=== PATIENT | female | born 1970 | race Caucasian/White ===

== ENCOUNTER 2024-08-30 21:43 | Emergency (ER) | payer SELFPAY ==
[~2024-08-30] VITALS: Ht 162.6 cm; Wt 82.0 kg
[2024-08-30 21:45] VITALS: O2SAT 100
[2024-08-30] MEDS: DEXAMETHASONE 10 MG/ML VIAL IV ONE (23:36)
[2024-08-30 23:48] VITALS: BP 127/71; PULSE 81; RESP 18; TEMP 36.1; O2SAT 98
== END 2024-08-30 23:49 | disposition home or self-care (01) ==
LOC: ER 21:43
DX: J02.9 Acute pharyngitis, unspecified (principal); Z95.0 Presence of cardiac pacemaker
CPT/HCPCS: 70490; 93005; 96374; 99285; J1100; Z7610